=== PATIENT | male | born 1955 | race Caucasian/White ===

== ENCOUNTER 2016-12-22 09:28 | Observation (INO) | payer BC ==
[2016-12-22] MEDS ORDERED: BACITRACIN IRRIGATION/NS 50,000 UNITS/1,000 ML BTL IRR ONE (09:33)
[2016-12-22] MEDS ORDERED: diphenhydrAMINE 25 MG CAP PO ONE (09:33)
[2016-12-22] MEDS ORDERED: ceFAZolin 2 GM/DEXTROSE 100 ML IV ONE (09:33)
[2016-12-22] MEDS ORDERED: DIAZEPAM 5 MG TAB PO ONE (09:33)
[2016-12-22] MEDS ORDERED: NS 1,000 ML IV ONE (09:33)
--- NOTE | 2016-12-22 09:52 | CPEKG ---
Heart Rate: 54 RR Interval: 1111 P-R Interval: 148 QRSD Interval: 76 QT Interval: 428 QTC Interval: 406 P Ponder: 22 QRS Ponder: 69 T Wave Ponder: 95 EKG Severity - ABNORMAL ECG - EKG Impression: SINUS RHYTHM EKG Impression: ANTERIOR INFARCT recent Electronically Signed By: Mariano Gonzalez 22-Dec-2016 18:56:47
[2016-12-22 10:09] LABS: % IMMATURE GRANULYOCYTES 0.8 % (0.0-1.1); ABSOLUTE IMMATURE GRANULOCYTES 0.06 10^3/uL (0.00-0.10); ADD DIFF? NO; ADD MORPH? NO; ADD SCAN? NO; ATYPICAL LYMPHOCYTE FLAG 10 (0-99); FRAGMENT RBC FLAG 0 (0-99); HEMATOCRIT 52.1 % (40.0-51.0); HEMOGLOBIN 18.2 g/dL (13.7-17.5); LEFT SHIFT FLG 0 (0-99); LIPEMIA HEMOLYSIS FLAG 90 (0-99); MEAN CELL HEMOGLOBIN 32.7 pg (27.9-34.1); MEAN CELL HEMOGLOBIN CONCENTR. 34.9 g/dL (32.4-36.7); MEAN CELL VOLUME 93.7 fL (81.5-99.8); MEAN PLATELET VOLUME 10.3 fL (8.7-11.7); PLATELET CLUMPS FLAG 0 (0-99); PLATELET COUNT 218 10^3/uL (150-400); RED BLOOD CELL COUNT 5.56 10^6/uL (4.40-6.38); RED CELL DISTRIBUTION WIDTH 13.8 % (11.5-15.2)
[2016-12-22 10:17] LABS: INR 1.05 (0.83-1.16); PROTIME(PATIENT) 13.6 SEC (12.0-15.0)
--- NOTE | 2016-12-22 10:17 | PDPROPOC ---
Sedation Plan of Care Sedation Plan of Care: vital signs stable, mental status noted, patient educated of risks, benefits, alternatives, patient can tolerate sedation ASA Classification: ASA 2 Planned drugs: fentanyl, midazolam Mallampati Score: Class 2 Mallampati Reference Image: Patient passed 3-3-2 rule?: Yes
--- NOTE | 2016-12-22 10:17 | PDGENHP ---
History & Physical Chief Complaint: Ischemic CM. History of Present Illness: CAD, prior ND and CABG now with EF of 32%. Pertinent Past, Social, Family History: CAD, prior ND, CABG, HTN. Relevant Physical Exam: A and O x 3, lungs clear, RRR without MGR. Cardiorespiratory Assessment: Stable for procedure.
[2016-12-22 10:33] LABS: ANION GAP 12 mEq/L (8-16); CALCIUM 9.8 mg/dL (8.5-10.4); CARBON DIOXIDE 24 mEq/l (22-31); CHLORIDE 104 mEq/L (97-110); GLOMERULAR FILTRATION RATE > 60; GLUCOSE 85 mg/dL (70-100); POTASSIUM 4.5 mEq/L (3.5-5.2); SODIUM 140 mEq/L (134-144)
[2016-12-22] MEDS ORDERED: BUPIVACAINE 0.5% 30 ML SDV ONE (10:38)
[2016-12-22] MEDS ORDERED: fentaNYL 100 MCG/2 ML INJ ONE ×2 (10:38→11:20)
[2016-12-22] MEDS ORDERED: LIDOCAINE 1% 300 MG/30 ML SDV ONE (10:38)
[2016-12-22] MEDS ORDERED: MIDAZOLAM 2 MG/2 ML VIAL ONE ×2 (10:38→11:20)
[2016-12-22] MEDS ORDERED: IOPAMIDOL (ISOVUE-300) 150 ML BTL ONE (10:39)
[2016-12-22] MEDS ORDERED: LIDO/EPI 1% **for epidural** 30 ML SDV ONE (10:40)
--- NOTE | 2016-12-22 13:05 | CPEKG ---
Heart Rate: 62 RR Interval: 968 P-R Interval: 168 QRSD Interval: 72 QT Interval: 424 QTC Interval: 431 P [place]: 61 QRS [place]: 63 T Wave [place]: 95 EKG Severity - ABNORMAL ECG - EKG Impression: SINUS RHYTHM EKG Impression: ANTERIOR INFARCT, RECENT Electronically Signed By: Mariano Gonzalez 22-Dec-2016 18:57:03
--- NOTE | 2016-12-22 13:41 | CPIP ---
[f rep st] INVASIVE CARDIAC PROCEDURE DATE OF PROCEDURE: 12/22/2016 INDICATIONS: The patient is 61 years old and has a history of an ischemic cardiomyopathy with an eje ction fraction of 32%. He has [employer] functional class II on maximum medications. He presents for placement of an ICD for primary prevention. PROCEDURE PERFORMED: Implantation of a dual-chamber implantable cardioverter-defibrillator. TECHNIQUE: Following informed consent, the patient was brought to the cardiac catheterization [facility] in a fasting state. The left chest was prepped and draped in the usual sterile fashion. A comb ination of lidocaine and bupivacaine was infiltrated below the left clavicle. Using the #10 blade, a 4 cm incision was made. Using blunt and sharp dissection, the ICD pocket was fashioned and all blee ders were cauterized. An antibiotic-soaked sponge was then placed in the pocket. Using 2 separate s ticks in the modified Seldinger technique, access was gained to the axillary vein at the level of the 1st rib. Two individual 0.035 J-wires were then placed. Using the first of these wires, a 7-Moroccan safe sheath was placed. Using this sheath, the ventricular lead was placed in the right ventricular apex and screwed into position. The lead was tested, with excellent capture and sensing, and the sh eath removed. The lead was then secured to the ICD pocket floor using 0 Ethibond. Using the existin g J-wire, an 8-[place]oc[place] safe sheath was placed. The atrial lead was brought to the field. The lead wa s passed into the right atrium. A position high in the right atrium was chosen and lead was screwed into place. Excellent capture and sensing were noted, the sheath was torn away, and the lead secured to the ICD pocket floor using 0 Ethibond. At this point, the antibiotic-soaked sponge was removed f rom the pocket. The pocket was inspected. All bleeders were cauterized and the pocket was flushed w ith antibiotic-containing solution. The device was then brought to the field. Both leads were ident ified by serial number and affixed to the header according to presentation specialist guidelines. The device an d the redundant portions of both leads were then placed in the pocket. The pocket was then closed in 3 layers, using 2 layers of interrupted suture with 2-0 and 3-0 Vicryl, and finally running 4-0 subc uticular sutures for the skin. Steri-Strips and a dry dressing were applied. COMPLICATIONS: None DEVICE INFORMATION: The ICD is a [employer] Isaura PANG, reference number [id number], serial nu mber [id number]. The atrial lead is a [employer] 46 cm lead, reference number [id number], serial nu mber [id number]. Ventricular lead is a [employer] Durata, reference number [id number], serial num kiana [id number]. In the atrium,capture was 1 V at 0.5 msec with sensed P waves of 3.2 mV and a lead im pedance of 606 ohms. Right ventricle capture was 0.3 V at 0.5 msec, sensed R-waves of 10.8 mV, lead impedance of 637 ohms. DISPOSITION: The patient will be transferred to the telemetry and monitored overnight. /[id number]/MODL
[2016-12-22] MEDS ORDERED: OXYCODONE/APAP 5/325 TAB PO PRN (16:35)
[2016-12-22] MEDS: ACETAMINOPHEN 325 MG TAB PO PRN (16:43)
[2016-12-22] MEDS: METOPROLOL TARTRATE 50 MG TAB PO SCH (19:44)
[2016-12-22] MEDS ORDERED: ROSUVASTATIN CALCIUM 10 MG TAB PO SCH (21:00)
[2016-12-23] MEDS: ACETAMINOPHEN 325 MG TAB PO PRN ×2 (03:34→09:42)
[2016-12-23 03:49] LABS: % IMMATURE GRANULYOCYTES 0.8 % (0.0-1.1); ABSOLUTE IMMATURE GRANULOCYTES 0.06 10^3/uL (0.00-0.10); ADD DIFF? NO; ADD MORPH? NO; ADD SCAN? NO; ATYPICAL LYMPHOCYTE FLAG 10 (0-99); FRAGMENT RBC FLAG 0 (0-99); HEMATOCRIT 48.8 % (40.0-51.0); HEMOGLOBIN 17.1 g/dL (13.7-17.5); LEFT SHIFT FLG 0 (0-99); LIPEMIA HEMOLYSIS FLAG 90 (0-99); MEAN CELL HEMOGLOBIN 32.3 pg (27.9-34.1); MEAN CELL VOLUME 92.2 fL (81.5-99.8); MEAN PLATELET VOLUME 10.5 fL (8.7-11.7); PLATELET CLUMPS FLAG 10 (0-99); PLATELET COUNT 181 10^3/uL (150-400); RED BLOOD CELL COUNT 5.29 10^6/uL (4.40-6.38); RED CELL DISTRIBUTION WIDTH 13.7 % (11.5-15.2)
[2016-12-23 04:07] LABS: ANION GAP 11 mEq/L (8-16); CALCIUM 9.1 mg/dL (8.5-10.4); CARBON DIOXIDE 22 mEq/l (22-31); CHLORIDE 105 mEq/L (97-110); CREATININE 0.9 mg/dL (0.7-1.3); GLOMERULAR FILTRATION RATE > 60; GLUCOSE 91 mg/dL (70-100); POTASSIUM 3.9 mEq/L (3.5-5.2); SODIUM 138 mEq/L (134-144)
[2016-12-23] MEDS ORDERED: FLU VACC QS 2017-18 (3YR+)/PF 0.5 ML SYR (FLUARIX QUAD) IM ONE (07:32)
--- NOTE | 2016-12-23 08:41 | CPEKG ---
Heart Rate: 67 RR Interval: 896 P-R Interval: 148 QRSD Interval: 90 QT Interval: 416 QTC Interval: 439 P [place]: 30 QRS [place]: 70 T Wave [place]: 96 EKG Severity - ABNORMAL ECG - EKG Impression: SINUS RHYTHM EKG Impression: ANTERIOR INFARCT, recent Electronically Signed By: Mariano Gonzalez 23-Dec-2016 10:42:37
[2016-12-23] MEDS ORDERED: LISINOPRIL 10 MG TAB PO SCH (09:00)
[2016-12-23] MEDS: METOPROLOL TARTRATE 50 MG TAB PO SCH (09:41)
[2016-12-23 11:16] VITALS: BP 121/84; PULSE 62; RESP 16; TEMP 98.4; O2SAT 90
--- NOTE | 2016-12-23 13:54 | GDS ---
[f rep st] DISCHARGE SUMMARY ADMIT DIAGNOSES: 1. Ischemic cardiomyopathy. 2. Planned placement of dual-chamber ICD. 3. Coronary artery disease with prior myocardial infarction, and history of CABG. DISCHARGE DIAGNOSES: 1. Status post successful placement of dual-chamber ICD. 2. Ischemic cardiomyopathy. 3. Coronary artery disease with prior myocardial infarction and CABG. COURSE OF HOSPITALIZATION: This gentleman is a clinic patient of Dr. Rehan Lin. He has long-alexis ding history of coronary artery disease, having had an IA and CABG procedure. He now has ischemic ca rdiomyopathy with ejection fraction of 32%. It was recommended for him to have a dual-chamber ICD pl aced for protection, due to the low ejection fraction and subsequent possibility of ventricular tachy cardia. He was in agreement with this plan. He was taken to the laboratory sample carrier by Dr. Rehan Lin on 04/2016, where he was able to place the dual chamber pacemaker. Additionally, placed the LINQ monito r, to monitor for possible atrial fibrillation, as he had a stroke in the past with no known cause. He was taken to PCU after the procedure, where h e has recovered nicely. He has tenderness around the site, however, managed well with Tylenol. He has no bleeding, induration at the pacemaker site. LINQ site has no bleeding, or induration, and is nontender. He has been up ambulating, with no problems. Mon itor shows a sinus paced rhythm. MEDICATIONS: He will go home on Crestor 5 mg at bedtime, Xarelto 20 mg daily, Lisinopril 10 mg daily , Lopressor 50 mg twice daily, ibuprofen 200-600 mg daily as needed for discomfort, Tylenol 325 mg to 650 mg every 4 hours as needed for pain. ALLERGIES: He has allergies to niacin. PHYSICAL EXAMINATION: VITAL SIGNS: On day of discharge, blood pressure 121/84, pulse 62 and regular , oxygen saturation 90% on room air. EKG shows a normal sinus rhythm. HEART: Rate is regular. No murmurs, rubs, gallops. LUNGS: Sounds are clear to auscultation. No wheezes, rales, or rhonchi. P acemaker site is intact, with no bleeding, induration. He does have mild tenderness. LINQ site no b leeding, induration or tenderness. EXTREMITIES: No peripheral edema. Pulses are 2+ bilaterally. PROCEDURE: On 12/22/2016, by Dr. Rehan Lin. Procedure performed implantation of dual-chamber imp lantable cardioverter-defibrillator. There were no complications. The device used is a [employer] ical Fayse DR, reference number [id number], serial #[id number]. DISCHARGE PLAN: 1. He will follow up in clinic in 1 week for pacemaker evaluation and wound check. Pacemaker evalua tion today showed normal function. 2. Left arm precautions post pacemaker were reviewed verbally and written instructions were provided . He understands not to use his arm above shoulder level for 4 weeks. Not to lift anything heavier than 10 pounds for 4 weeks. He will cover the area with plastic before showering. Should he have fu rther concerns, he will call [facility]. 3. He does have a followup with Dr. Patton in 4 weeks. At this time, he currently is stable for d ischarge. /[id number]/MODL
--- NOTE | 2016-12-23 14:00 | ASDISCHSUM ---
Discharge Information Plan Status:Home with No Needs Medically Cleared to Leave:12/23/2016 Discharge Date:12/23/2016 01:05 PM CM D/C Disposition:Home, Routine, Self-Care ADT D/C Disposition:Home, Routine, Self-Care Projected Discharge Date:12/23/2016 01:05 PM Transportation at D/C:Family Discharge Delay Reason: Follow-Up Date:12/23/2016 01:05 PM Discharge Slot: Final Diagnosis: Placement Information Patient Contact Information Contact Name:COREEN Relationship: Address: Work Phone: City: [facility] Phone: State/[employer] Code: Email: Financial Information Financial Class:HMO and PPO Plans Primary Plan Desc: OUT OF STATE PPO Primary Plan Number:[id number] Secondary Plan Desc: Secondary Plan Number: Assessment Information BC CM Progress Note CM Note CM Note Notes: 12/23/2016 Case Management Note: Reviewed chart, spoke w/RN. No case management d/c needs identified d/t pt age and activity levels prior to admission. Case management d/c poc: Independent w/follow up as directed by . Date Signed: 12/23/2016 01:59 PM Electronically Signed By:Christina English RN Intervention Information
== END 2016-12-23 13:05 | disposition home or self-care (01) ==
LOC: FCATH 09:28 → F2W 12:18
PROVIDERS: ADMIT Internal Medicine Cardiovascular Disease; ATTEND Internal Medicine Cardiovascular Disease
PROC: 0JH608Z Insertion of Defibrillator Generator into Chest Subcutaneous Tissue and Fascia, Open Approach (ICD-10-PCS; principal; 2016-12-22)
PROC: 02HK3KZ Insertion of Defibrillator Lead into Right Ventricle, Percutaneous Approach (ICD-10-PCS; principal; 2016-12-22)
PROC: 02H63KZ Insertion of Defibrillator Lead into Right Atrium, Percutaneous Approach (ICD-10-PCS; principal; 2016-12-22)
DX: I25.5 Ischemic cardiomyopathy (principal); I25.10 Atherosclerotic heart disease of native coronary artery without angina pectoris; I25.2 Old myocardial infarction
CPT/HCPCS: 33249; 71010; 71020; 90471; 93005; G0378; C1721; C1777; C1898; G0008; J0690; J2250; J3010; Q9967